=== PATIENT | male | born 1970 | race American Indian/Alaskan Native ===

== ENCOUNTER 2017-07-06 19:43 | Emergency (ER) | payer SELFPAY ==
--- NOTE | 2017-07-06 20:07 | C.PDOC ---
History Of Present Illness 47 year old male is brought into the ED by BLS after being found sleeping [place] the [place] in [facility]. Patient was found intoxicated, upon arrival at the ED he was non communicative, not answering questions, only responsive to painful stimuli. Time Seen by Provider: 07/06/17 19:54 Chief Complaint (Nursing): Substance Abuse History Per: EMS History/Exam Limitations: intoxication Onset/Duration Of Symptoms: Hrs Current Symptoms Are (Timing): Still Present Suicide/Self Injury Attempted (Context): None Modifying Factor(s): Alcohol Associated Symptoms: denies: Suicidal Thoughts, Suicidal Plan Involuntary Hold By: None Recent travel outside of the [place]: No Additional History Per: EMS Past Medical History Reviewed: Historical Data, Nursing Documentation, Vital Signs Vital Signs: Last Vital Signs Temp 97.2 F L 07/06/17 19:55 Pulse 63 07/06/17 22:58 Resp 14 07/06/17 22:58 BP 97/62 L 07/06/17 22:58 Pulse Ox 98 07/06/17 22:58 - Medical History PMH: No Chronic Diseases Surgical History: No Surg Hx Family History: States: Unknown Family Hx - Social History Hx Alcohol Use: No Hx Substance Use: No - Immunization History Hx Tetanus Toxoid Vaccination: No Hx Influenza Vaccination: No Hx Pneumococcal Vaccination: No Review Of Systems Review Of Systems: ROS cannot be obtained secondary to pt's inabilty to answer questions. Physical Exam - Physical Exam Appears: Other (Intoxicated ) Skin: Normal Color, Warm, Dry Head: Atraumatic, Normacephalic Eye(s): bilateral: Abnormal Pupil (Constricted) Oral Mucosa: Moist Neck: Normal ROM, Supple Chest: Symmetrical, No Tenderness Cardiovascular: Rhythm Regular, No Murmur Respiratory: Normal Breath Sounds, No Rales, No Rhonchi, No Wheezing Gastrointestinal/Abdominal: Soft, No Tenderness Extremity: Normal ROM, No Pedal Edema, No Calf Tenderness, No Swelling Neurological/Psych: Inappropriate Response To Command (Only to painful stimuli) ED Course And Treatment O2 Sat by Pulse Oximetry: 98 (On RA) Pulse Ox Interpretation: Normal Reevaluation Time: 00:09 Reassessment Condition: Unchanged (Patient remains altered but is more arousable and now speaking but with slurred speech.) Medical Decision Making Medical Decision Making: Impression : 47 y/o male found intoxicated at [facility]. Upon arrival patient was not talking, not answering any questions and only responds to painful stimuli. Disposition - Disposition Disposition Time: 00:13 Condition: IMPROVED Forms: [facility] (French) - Clinical Impression Clinical Impression: Drug abuse, Altered mental status - Scribe Statement The provider has reviewed the documentation as recorded by the Scribe Abe Awad All medical record entries made by the Scribe were at my direction and personally dictated by me. I have reviewed the chart and agree that the record accurately reflects my personal performance of the history, physical exam, medical decision making, and the department course for this patient. I have also personally directed, reviewed, and agree with the discharge instructions and disposition. Physician Patient Turnover Patient Signed Over To: Esteban Andre Handoff Comments: pending sobriety
[2017-07-07 04:01] VITALS: O2SAT 99
[2017-07-07 05:52] VITALS: BP 102/68; PULSE 72; RESP 16; TEMP 98.4
== END 2017-07-07 06:22 | disposition home or self-care (01) ==
LOC: C.ER 19:43
DX: R41.82 Altered mental status, unspecified (principal); F19.10 Other psychoactive substance abuse, uncomplicated; F10.10 Alcohol abuse, uncomplicated; Y90.9 Presence of alcohol in blood, level not specified
CPT/HCPCS: 82948; 99285; G0480